=== PATIENT | female | born 1945 | race Caucasian/White ===

== ENCOUNTER 2017-04-29 09:39 | Outpatient (CLI) | payer MEDICARE, BC ==
[2017-04-29 11:04] LABS: ALT (SGPT) 22 U/L (8-55); AST (SGOT) 18 U/L (5-34); Albumin 4.5 g/dL (3.4-4.8); Alkaline Phosphatase 50 U/L (40-150); Anion Gap 15 mmol/L (10-20); BUN (Urea Nitrogen) 13 mg/dL (9.8-20.1); Bilirubin, Total 0.3 mg/dL (0.2-1.2); Calc. Creatinine Clearance 0 mL/min (70-130); Calcium 9.8 mg/dL (7.8-10.44); Carbon Dioxide 25 mmol/L (23-31); Cardiac Risk 2.9 (Less than 4.5); Chloride 103 mmol/L (98-107); Cholesterol 185 mg/dl (< 200 Desired); Estimated GFR-MDRD 75; Globulin 3.4 g/dL (2.4-3.5); Glucose 101 mg/dL (83-110); HDL Cholesterol 64 mg/dL (>60 Neg Risk); LDL Cholesterol, Calculated 92 mg/dL; Potassium 4.2 mmol/L (3.5-5.1); Protein, Total 7.9 g/dL (6.0-8.3); Sodium 139 mmol/L (136-145); Triglycerides 143 mg/dL (Less than 150)
[2017-04-29 11:17] LABS: Free T4 (Free Thyroxine) 1.19 ng/dL (0.70-1.48); Thyroid Stimulating Hormone 0.5683 uIU/mL (0.35-4.94)
[2017-04-29 12:33] LABS: Bilirubin Negative (Negative); Blood, Urine Trace (Negative); Clarity Hazy (Clear); Glucose, Urine (Dipstick) Negative (Negative); Leukocyte Moderate (Negative); Nitrite Negative (Negative); Protein, Urine (Dipstick) Negative (Neg-Trace); Specific Gravity, Urine 1.015 (1.005-1.030); Urobilinogen 0.2 mg/dL (0.2-1.0); pH, Urine 7.5 (5.0-9.0)
[2017-04-29 12:34] LABS: Bacteria/HPF 1+ HPF (None Seen); WBC/HPF 21-50 HPF (0-3)
== END 2017-04-29 09:40 | disposition home or self-care (01) ==
LOC: MADLAB 09:39
PROVIDERS: ATTEND Internal Medicine
DX: E78.5 Hyperlipidemia, unspecified (principal); E73.9 Lactose intolerance, unspecified
CPT/HCPCS: 36415; 80053; 80061; 81001; 84439; 84443

== ENCOUNTER 2018-04-20 09:21 | Outpatient (CLI) | payer MEDICARE, BC ==
[2018-04-20 14:25] LABS: ALT (SGPT) 21 U/L (8-55); AST (SGOT) 17 U/L (5-34); Albumin 4.3 g/dL (3.4-4.8); Alkaline Phosphatase 39 U/L (40-150); Anion Gap 13 mmol/L (10-20); BUN (Urea Nitrogen) 17 mg/dL (9.8-20.1); Bilirubin, Total 0.4 mg/dL (0.2-1.2); Calc. Creatinine Clearance 0 mL/min (70-130); Carbon Dioxide 26 mmol/L (23-31); Cardiac Risk 3.7 (Less than 4.5); Chloride 101 mmol/L (98-107); Cholesterol 186 mg/dl (< 200 Desired); Estimated GFR-MDRD 78; Globulin 2.8 g/dL (2.4-3.5); Glucose 113 mg/dL (83-110); HDL Cholesterol 50 mg/dL (>60 Neg Risk); LDL Cholesterol, Calculated 88 mg/dL; Potassium 4.6 mmol/L (3.5-5.1); Protein, Total 7.1 g/dL (6.0-8.3); Sodium 135 mmol/L (136-145); Triglycerides 239 mg/dL (Less than 150)
[2018-04-20 14:27] LABS: Eosinophils 4 % (0-10); Hemoglobin 13.6 g/dL (12.0-16.0); Lymphocytes 22 % (21-51); MDiff Complete? YES; Mean Corpuscular HGB CONC 31.8 g/dL (32.0-36.0); Mean Corpuscular Hemoglobin 27.8 pg (27.0-31.0); Mean Corpuscular Volume 87.5 fL (78.0-98.0); Mean Platelet Volume 5.4 fL (7.4-10.4); Monocytes 14 % (0-10); Neutrophil 60 % (42-75); Platelet Count 402 thou/uL (130-400); RBC Distribution Width 11.9 % (11.5-14.5); Red Blood Cell (RBC) Count 4.88 mill/uL (4.20-5.40); White Blood Cell (WBC) Count 8.2 thou/uL (4.8-10.8)
[2018-04-20 15:07] LABS: Thyroid Stimulating Hormone 0.2711 uIU/mL (0.35-4.94)
[2018-04-20 17:25] LABS: Free T4 (Free Thyroxine) 1.28 ng/dL (0.70-1.48)
== END 2018-04-20 09:22 | disposition home or self-care (01) ==
LOC: MADLAB 09:21
PROVIDERS: ATTEND Internal Medicine
DX: E03.9 Hypothyroidism, unspecified (principal); E78.5 Hyperlipidemia, unspecified; K30 Functional dyspepsia; I10 Essential (primary) hypertension
CPT/HCPCS: 36415; 80053; 80061; 84439; 84443; 85025

== ENCOUNTER 2023-05-04 20:25 | Emergency (ER) | payer MEDICARE, BC ==
[2023-05-04 21:06] LABS: ALT (SGPT) 20 U/L (8-55); AST (SGOT) 68 U/L (5-34); Albumin 3.9 g/dL (3.4-4.8); Alkaline Phosphatase 48 U/L (40-110); Anion Gap 18 mmol/L (10-20); BUN (Urea Nitrogen) 15 mg/dL (9.8-20.1); Bilirubin, Total 0.3 mg/dL (0.2-1.2); Calc. Creatinine Clearance 0 mL/min (70-130); Calcium 9.7 mg/dL (7.8-10.44); Carbon Dioxide 20 mmol/L (23-31); Chloride 102 mmol/L (98-107); Estimated GFR 89; Globulin 3.5 g/dL (2.4-3.5); Glucose 143 mg/dL (83-110); Potassium 3.4 mmol/L (3.5-5.1); Protein, Total 7.4 g/dL (5.8-8.1); Sodium 137 mmol/L (136-145)
[2023-05-04 21:09] LABS: Band 1 % (5-11); Hematocrit 49.5 % (36.0-47.0); Hemoglobin 16.1 g/dL (12.0-16.0); Lymphocytes 60 % (21-51); MDiff Complete? YES; Mean Corpuscular HGB CONC 32.5 g/dL (32.0-36.0); Mean Corpuscular Hemoglobin 28.5 pg (27.0-31.0); Mean Corpuscular Volume 87.8 fl (78.0-98.0); Mean Platelet Volume 7.6 fL (7.4-10.4); Monocytes 12 % (0-10); Neutrophil 27 % (42-75); Platelet Count 319 10x3/uL (130-400); RBC Distribution Width 12.3 % (11.5-14.5); Red Blood Cell (RBC) Count 5.64 mill/uL (4.20-5.40); White Blood Cell (WBC) Count 6.6 10x3/uL (4.8-10.8)
[2023-05-04 21:14] LABS: Troponin I 7.413 ng/mL (< 0.028)
[2023-05-04 22:16] LABS: SARS-CoV-2 NAA Rapid Test DETECTED (NotDetected)
== END 2023-05-04 23:04 | disposition short-term general hospital (02) ==
LOC: MADERS 20:25
DX: U07.1 COVID-19 (principal); I21.3 ST elevation (STEMI) myocardial infarction of unspecified site; I61.9 Nontraumatic intracerebral hemorrhage, unspecified; E03.9 Hypothyroidism, unspecified; E78.00 Pure hypercholesterolemia, unspecified; I10 Essential (primary) hypertension
CPT/HCPCS: 70450; 71045; 80053; 83880; 84484; 85025; 93005; U0002

== ENCOUNTER 2023-06-23 10:08 | Emergency (ER) | payer MEDICARE, BC ==
[~2023-06-23 10:08] MED LIST: Iopamidol 370 76% 100 ML VIAL ONE
[2023-06-23] MEDS ORDERED: Ipratropium/Albuterol 3 ML NEB ONE (10:30)
[2023-06-23] MEDS ORDERED: Benzonatate 100 MG CAP ONE (10:36)
[2023-06-23] MEDS ORDERED: methylPREDNISolone Sod Succ/PF 125 MG/2 ML VIAL ONE (10:36)
[2023-06-23 10:59] LABS: ALT (SGPT) 9 U/L (8-55); AST (SGOT) 15 U/L (5-34); Albumin 3.9 g/dL (3.4-4.8); Alkaline Phosphatase 42 U/L (40-110); Anion Gap 16 mmol/L (10-20); BUN (Urea Nitrogen) 16 mg/dL (9.8-20.1); Bilirubin, Total 0.4 mg/dL (0.2-1.2); Calc. Creatinine Clearance 0 mL/min (70-130); Calcium 9.6 mg/dL (7.8-10.44); Carbon Dioxide 22 mmol/L (23-31); Chloride 105 mmol/L (98-107); Estimated GFR 90; Globulin 2.8 g/dL (2.4-3.5); Glucose 124 mg/dL (83-110); Potassium 4.4 mmol/L (3.5-5.1); Protein, Total 6.7 g/dL (5.8-8.1); Sodium 139 mmol/L (136-145)
[2023-06-23 11:18] LABS: Hemoglobin 13.4 g/dL (12.0-16.0); MDiff Complete? YES; Mean Corpuscular HGB CONC 31.2 g/dL (32.0-36.0); Mean Corpuscular Hemoglobin 28.9 pg (27.0-31.0); Mean Corpuscular Volume 92.5 fl (78.0-98.0); Mean Platelet Volume 7.7 fL (7.4-10.4); Platelet Count 309 10x3/uL (130-400); RBC Distribution Width 13.6 % (11.5-14.5); Red Blood Cell (RBC) Count 4.65 mill/uL (4.20-5.40); White Blood Cell (WBC) Count 12.8 10x3/uL (4.8-10.8)
[2023-06-23 11:20] LABS: Band 12 % (5-11); Eosinophils 2 % (0-10); Hypochromia SLIGHT = 6-15 cells (100X) (0-5/hpf); Lymphocytes 17 % (21-51); Monocytes 2 % (0-10); Neutrophil 67 % (42-75)
[2023-06-23 11:21] LABS: Platelet Adequacy Comment Appears Adequate
[2023-06-23 11:35] LABS: SARS-CoV-2 NAA Rapid Test DETECTED (NotDetected)
== END 2023-06-23 12:58 | disposition home or self-care (01) ==
LOC: MADERS 10:08
DX: U07.1 COVID-19 (principal); J20.8 Acute bronchitis due to other specified organisms; I10 Essential (primary) hypertension; I25.2 Old myocardial infarction; J45.909 Unspecified asthma, uncomplicated; E03.9 Hypothyroidism, unspecified; E78.00 Pure hypercholesterolemia, unspecified; Z86.16 Personal history of COVID-19; Z86.73 Personal history of transient ischemic attack (TIA), and cerebral infarction without residual deficits; Z79.899 Other long term (current) drug therapy
CPT/HCPCS: 71045; 71275; 80053; 83880; 84484; 85025; 85379; 87804 ×2; 87807; 93005; 94640; U0002; 96374; J2930; J7620; Q9967

== ENCOUNTER 2024-03-19 20:07 | Emergency (ER) | payer MEDICARE ==
[~2024-03-19 20:07] MED LIST changes: +Sodium Chloride 0.9% 100 ML BAG ONE
[2024-03-19] MEDS ORDERED: Morphine 4 MG/ML VIAL ONE (20:56)
[2024-03-19] MEDS ORDERED: Sodium Chloride 0.9% 1,000 ML ONE (20:56)
[2024-03-19] MEDS ORDERED: Ipratropium/Albuterol 3 ML NEB ONE ×2 (20:56→21:47)
[2024-03-19] MEDS ORDERED: Ondansetron PF 4 MG/2 ML Vial ONE (20:56)
[2024-03-19 22:01] LABS: INR-International Normal Ratio 0.9; PTT 29.3 sec (22.9-36.1); Prothrombin Time 12.3 sec (12.0-14.7)
[2024-03-19] MEDS ORDERED: Sodium Chloride 0.9% 100 ML ONE (22:01)
[2024-03-19] MEDS ORDERED: Azithromycin 500 MG VIAL ONE (22:01)
[2024-03-19] MEDS ORDERED: Sodium Chloride 0.9% 250 ML 250 ML ONE (22:01)
[2024-03-19] MEDS ORDERED: cefTRIAXone (ROCEPHIN) 2 GM VIAL ONE (22:01)
[2024-03-19 22:09] LABS: Band 1 % (5-11); Eosinophils 2 % (0-10); Lymphocytes 5 % (21-51); MDiff Complete? YES; Mean Corpuscular HGB CONC 30.9 g/dL (32.0-36.0); Mean Corpuscular Hemoglobin 28.6 pg (27.0-31.0); Mean Corpuscular Volume 92.7 fl (78.0-98.0); Mean Platelet Volume 6.2 fL (7.4-10.4); Monocytes 3 % (0-10); Neutrophil 89 % (42-75); Platelet Count 372 10x3/uL (130-400); RBC Distribution Width 12.3 % (11.5-14.5); Red Blood Cell (RBC) Count 4.54 mill/uL (4.20-5.40); White Blood Cell (WBC) Count 20.6 10x3/uL (4.8-10.8)
[2024-03-19 22:12] LABS: ALT (SGPT) 18 U/L (8-55); AST (SGOT) 22 U/L (5-34); Albumin 3.6 g/dL (3.4-4.8); Alkaline Phosphatase 50 U/L (40-110); Anion Gap 16 mmol/L (10-20); BUN (Urea Nitrogen) 14 mg/dL (9.8-20.1); Bilirubin, Total 0.3 mg/dL (0.2-1.2); Calc. Creatinine Clearance 0 mL/min (70-130); Carbon Dioxide 21 mmol/L (23-31); Chloride 105 mmol/L (98-107); Estimated GFR 87; Globulin 3.2 g/dL (2.4-3.5); Glucose 194 mg/dL (83-110); Potassium 3.7 mmol/L (3.5-5.1); Protein, Total 6.8 g/dL (5.8-8.1); Sodium 138 mmol/L (136-145)
[2024-03-19 22:15] LABS: Troponin I Less than 0.010 ng/mL (< 0.028)
[2024-03-19] MEDS ORDERED: Lorazepam 2 MG/ML VIAL ONE (23:32)
[2024-03-19 23:41] LABS: Influenza A by NAA Not Detected (NotDetected); Influenza B by NAA Not Detected (NotDetected); SARS-CoV-2 NAA Rapid Test Not Detected (NotDetected)
[2024-03-20] MEDS ORDERED: Acetaminophen 325 MG TAB ONE (01:07)
[2024-03-20 01:55] LABS: Bilirubin Negative (Negative); Blood, Urine Negative (Negative); Clarity Clear (Clear); Glucose, Urine (Dipstick) 100 mg/dL (Negative); Ketone, Urine 15 mg/dL (Negative); Leukocyte Negative (Negative); Nitrite Negative (Negative); Protein, Urine (Dipstick) Negative (Neg-Trace); Urobilinogen 0.2 mg/dL (Less than 2); pH, Urine 7.5 (5.0-9.0)
[2024-03-20 01:58] LABS: CAUTI Indications for Culture Pelvic or flank pain; RBC/HPF None Seen HPF (0-3); Squamous Epithelial 0-3 HPF (0-3); WBC/HPF None Seen HPF (0-3)
[2024-03-20 01:59] LABS: Urine Culture Reflex No No
== END 2024-03-20 02:07 | disposition short-term general hospital (02) ==
LOC: MADERS 20:07
DX: S42.202A Unspecified fracture of upper end of left humerus, initial encounter for closed fracture (principal); J45.901 Unspecified asthma with (acute) exacerbation; E03.9 Hypothyroidism, unspecified; I10 Essential (primary) hypertension; E78.00 Pure hypercholesterolemia, unspecified; Z79.899 Other long term (current) drug therapy; W18.30XA Fall on same level, unspecified, initial encounter
CPT/HCPCS: 70450; 71045; 71275; 72125; 72170; 80053; 81001; 83605; 83880; 84484; 85025; 85610; 85730; 87040; 93005; 94640; 94760; 96361; 96365; 96375; J0456; J0696; J2060; J2270; J2405; J3490; J7050; J7620; Q9967

== ENCOUNTER 2024-08-08 14:24 | Emergency (ER) | payer MEDICARE, BC ==
[2024-08-08] MEDS ORDERED: Sodium Chloride 0.9% 1,000 ML ONE (15:11)
[2024-08-08 15:21] LABS: INR-International Normal Ratio 0.9
[2024-08-08 15:22] LABS: PTT 28.2 sec (22.9-36.1)
[2024-08-08 15:27] LABS: Hematocrit 38.9 % (36.0-47.0); Mean Corpuscular HGB CONC 30.8 g/dL (32.0-36.0); Mean Corpuscular Hemoglobin 27.9 pg (27.0-31.0); Mean Corpuscular Volume 90.7 fl (78.0-98.0); Mean Platelet Volume 6.6 fL (7.4-10.4); Platelet Count 419 10x3/uL (130-400); RBC Distribution Width 12.4 % (11.5-14.5); Red Blood Cell (RBC) Count 4.29 mill/uL (4.20-5.40); White Blood Cell (WBC) Count 8.9 10x3/uL (4.8-10.8)
[2024-08-08 15:29] LABS: Prothrombin Time 12.7 sec (12.0-14.7)
[2024-08-08 15:31] LABS: ALT (SGPT) 11 U/L (8-55); AST (SGOT) 19 U/L (5-34); Albumin 3.7 g/dL (3.4-4.8); Alkaline Phosphatase 59 U/L (40-110); Anion Gap 18 mmol/L (10-20); BUN (Urea Nitrogen) 14 mg/dL (9.8-20.1); Bilirubin, Total 0.2 mg/dL (0.2-1.2); Calc. Creatinine Clearance 0 mL/min (70-130); Calcium 9.7 mg/dL (7.8-10.44); Carbon Dioxide 21 mmol/L (23-31); Chloride 107 mmol/L (98-107); Estimated GFR 88; Globulin 2.8 g/dL (2.4-3.5); Glucose 122 mg/dL (83-110); Potassium 4.7 mmol/L (3.5-5.1); Protein, Total 6.5 g/dL (5.8-8.1); Sodium 141 mmol/L (136-145)
[2024-08-08 15:33] LABS: Troponin I Less than 0.010 ng/mL (< 0.028)
[2024-08-08 15:35] LABS: Band 3 % (5-11); Eosinophils 7 % (0-10); Lymphocytes 26 % (21-51); MDiff Complete? YES; Monocytes 6 % (0-10); Neutrophil 58 % (42-75); Platelet Adequacy Comment Appears Adequate
== END 2024-08-08 15:32 | disposition short-term general hospital (02) ==
LOC: MADERS 14:24
DX: I63.9 Cerebral infarction, unspecified (principal); I61.9 Nontraumatic intracerebral hemorrhage, unspecified; E78.00 Pure hypercholesterolemia, unspecified; I10 Essential (primary) hypertension; Z79.899 Other long term (current) drug therapy; Z79.890 Hormone replacement therapy; Z86.16 Personal history of COVID-19; Z79.82 Long term (current) use of aspirin
CPT/HCPCS: 70450; 71045; 80053; 82962; 84484; 85025; 85610; 85730; 93005; J7030; 36416

== ENCOUNTER 2024-08-13 23:48 | Inpatient (IN) | payer MEDICARE, BC ==
[2024-08-14 00:12] VITALS: BMI 17.8
[2024-08-14] MEDS: Mometasone 200 MCG/Formoterol 5 MCG 60 PUFF INHALER INH SCH (06:51)
[2024-08-14] MEDS: Levothyroxine Sodium 75 MCG TAB PO SCH (06:51)
[2024-08-14] MEDS: NIFEdipine XL 30 MG ER.TAB PO SCH (10:11)
[2024-08-14] MEDS: Montelukast Sodium 10 mg Tablet PO SCH (10:11)
[2024-08-14] MEDS: Metoprolol Tartrate 25 MG TAB PO SCH (10:11)
[2024-08-14] MEDS: Sacubitril 24MG/Valsartan 26 MG TAB PO SCH (10:12)
[2024-08-14] MEDS: busPIRone HCl 5 MG TAB PO SCH (10:12)
[2024-08-14] MEDS: Ipratropium/Albuterol 3 ML NEB NEB SCH (10:12)
[2024-08-14] MEDS: Acetaminophen 325 MG TAB PO PRN (17:21)
[2024-08-14] MEDS: Rosuvastatin 10 MG TAB PO SCH (20:51)
[2024-08-14] MEDS: PARoxetine 20 MG TAB PO SCH (20:52)
[2024-08-15] MEDS: Mometasone 200 MCG/Formoterol 5 MCG 60 PUFF INHALER INH SCH (09:32)
[2024-08-16] MEDS: Ondansetron ODT 4 MG TAB PO PRN (07:57)
[2024-08-17] MEDS: Albuterol 200 PUFF (6.7GM INHALER) INH PRN (05:52)
[2024-08-18] MEDS: Polyethylene Glycol 3350 17 GM Packet PO PRN (08:01)
[2024-08-20 14:27] VITALS: BMI 17.9
[2024-08-20 18:01] VITALS: BP 125/69; TEMP 97.6
== END 2024-08-20 18:54 | disposition home health service (06) | DRG 947 ==
LOC: MADMS 23:49
PROVIDERS: ADMIT Family Medicine; ATTEND Family Medicine
DX: R53.81 Other malaise (principal); I61.9 Nontraumatic intracerebral hemorrhage, unspecified; I42.9 Cardiomyopathy, unspecified; I10 Essential (primary) hypertension; E78.5 Hyperlipidemia, unspecified; J45.909 Unspecified asthma, uncomplicated; E03.9 Hypothyroidism, unspecified; Z79.899 Other long term (current) drug therapy; Z88.0 Allergy status to penicillin; Z88.2 Allergy status to sulfonamides; Z88.8 Allergy status to other drugs, medicaments and biological substances; F41.9 Anxiety disorder, unspecified; Z98.890 Other specified postprocedural states
CPT/HCPCS: J7620; Q0162

== ENCOUNTER 2024-09-28 15:20 | Emergency (ER) | payer MEDICARE, BC ==
[~2024-09-28 15:20] MED LIST changes: -Sodium Chloride 0.9% 100 ML BAG ONE
[2024-09-28] MEDS ORDERED: Morphine 2 MG/ML VIAL ONE ×2 (16:18→22:36)
[2024-09-28 16:42] LABS: INR-International Normal Ratio 0.9; Prothrombin Time 12.4 sec (12.0-14.7)
[2024-09-28 16:54] LABS: ALT (SGPT) 18 U/L (8-55); AST (SGOT) 21 U/L (5-34); Albumin 3.7 g/dL (3.4-4.8); Alkaline Phosphatase 62 U/L (40-110); Anion Gap 14 mmol/L (10-20); BUN (Urea Nitrogen) 17 mg/dL (9.8-20.1); Band 21 % (5-11); Bilirubin, Total 0.3 mg/dL (0.2-1.2); Calc. Creatinine Clearance 0 mL/min (70-130); Calcium 9.5 mg/dL (7.8-10.44); Carbon Dioxide 23 mmol/L (23-31); Chloride 105 mmol/L (98-107); Eosinophils 2 % (0-10); Estimated GFR 89; Glucose 170 mg/dL (83-110); Hematocrit 43.7 % (36.0-47.0); Hemoglobin 13.4 g/dL (12.0-16.0); Hypochromia SLIGHT = 6-15 cells (100X) (0-5/hpf); Lymphocytes 6 % (21-51); MDiff Complete? YES; Mean Corpuscular HGB CONC 30.6 g/dL (32.0-36.0); Mean Corpuscular Hemoglobin 26.9 pg (27.0-31.0); Monocytes 3 % (0-10); Neutrophil 63 % (42-75); Platelet Adequacy Comment Appears Adequate; Platelet Count 397 10x3/uL (130-400); Potassium 3.9 mmol/L (3.5-5.1); Protein, Total 6.7 g/dL (5.8-8.1); RBC Distribution Width 12.1 % (11.5-14.5); Red Blood Cell (RBC) Count 4.97 mill/uL (4.20-5.40); Sodium 138 mmol/L (136-145); White Blood Cell (WBC) Count 18.4 10x3/uL (4.8-10.8)
== END 2024-09-28 22:49 ==
LOC: MADERS 15:20
DX: S42.292A Other displaced fracture of upper end of left humerus, initial encounter for closed fracture (principal); I10 Essential (primary) hypertension; W19.XXXA Unspecified fall, initial encounter
CPT/HCPCS: 51702; 70450; 72125; 73030; 73070; 74177; 80053; 85025; 85610; 96374; 96376; 99285; J2272; Q9967